=== PATIENT | female | born 1945 | race Caucasian/White ===

== ENCOUNTER 2022-04-29 08:50 | Day surgery (SDC) | payer OTHER, SELFPAY ==
[2022-04-25 14:07] LABS: Alanine Aminotransferase 21 U/L (10-49); Albumin, Serum 4.3 gm/dL (3.4-4.8); Albumin/Globulin Ratio 1.3 (1.2-2.2); Alkaline Phosphatase 83 U/L (46-116); Anion Gap 7 (7-16); Aspartate Amino Transferase 30 U/L (0-34); BUN/Creatinine Ratio 30 Ratio (12-20); Bilirubin,Total 0.4 mg/dL (0.3-1.2); Blood Urea Nitrogen 21 mg/dL (9-23); Calcium 9.6 mg/dL (8.3-10.6); Calcium (Corrected) 9.6 mg/dL (8.5-10.1); Carbon Dioxide 27.1 mMol/L (20.0-31.0); Chloride 107 mMol/L (98-107); Creatinine (Component) 0.7 mg/dL (0.6-1.3); Globulin 3.2 gm/dL (2.3-3.5); Glucose 85 mg/dL (74-106); Osmolality,Calculated 283 (275-295); Potassium 4.6 mMol/L (3.4-5.1); Sodium 141 mMol/L (136-145); Total Protein 7.5 gm/dL (5.7-8.2); eGFR > 60 See Note
[2022-04-25 14:11] LABS: COVID-19 (In-House Test) RNA Presumptive Negative (Negative)
[2022-04-29 09:18] VITALS: BP 137/77; PULSE 86; RESP 15; TEMP 36.4; O2SAT 97; BMI 22.6
[2022-04-29] MEDS: RINGERS LACTATED 1000 ML 1,000 ML 20 ML IV (10:59)
[2022-04-29 11:36] VITALS: BP 121/62; PULSE 72; RESP 21; TEMP 36.6; O2SAT 98
[2022-04-29 11:46] VITALS: BP 139/74; PULSE 69; RESP 19; O2SAT 97
--- NOTE | 2022-04-29 11:55 | SUR.PHASEII ---
1136: Pt received in [facility]. Pt sleepy. Easily aroused. Resp even, unlabored. VS stable. Pt passing flatus. Denies pain, discomfort.
[2022-04-29 11:56] VITALS: BP 132/70; PULSE 65; RESP 16; TEMP 36.6; O2SAT 97
--- NOTE | 2022-04-29 12:01 | SUR.PHASEII ---
1200: Pt more awake, alert. VS stable. Continues to pass flatus. Denies pain. Sitting up tolerating po fluids with no difficulty swallowing and no n/v.
--- NOTE | 2022-04-29 12:40 | SUR.PHASEII ---
1214: Pt fully awake, oriented x3. Pt assisted to restroom. Ambulation steady. Pt and grand daughter stated understanding of discharge instructions. Pt discharged from [facility] in stable condition.
== END 2022-04-29 12:14 | disposition home or self-care (01) ==
PROVIDERS: Anesthesiology; PCP Family Medicine; Referring Provider Internal Medicine Gastroenterology; Visit Provider Internal Medicine Gastroenterology
PROC: 0DBE8ZX Excision of Large Intestine, Via Natural or Artificial Opening Endoscopic, Diagnostic (ICD-10-PCS; CPT 45380; principal; 2022-04-29 11:45)
DX: K64.4 Residual hemorrhoidal skin tags (principal); K64.8 Other hemorrhoids; K57.30 Diverticulosis of large intestine without perforation or abscess without bleeding; Z20.822 Contact with and (suspected) exposure to COVID-19; Z01.810 Encounter for preprocedural cardiovascular examination; D12.5 Benign neoplasm of sigmoid colon; D12.0 Benign neoplasm of cecum
CPT/HCPCS: 45380; 36415; 80053; 87635; A4217; A4649; C9803; J7120; U0002

== ENCOUNTER 2024-07-21 16:08 | Emergency (ER) | payer OTHER, SELFPAY ==
[2024-07-21 16:09] VITALS: BMI 22.4
[2024-07-21 16:19] VITALS: BP 110/70; PULSE 86; RESP 20; TEMP 37.3; O2SAT 95
--- NOTE | 2024-07-21 16:28 | PD.EDRME ---
Rapid Medical Screening Exam E Arrival date/time: 07/21/24 16:08 78-year-old female with no known medical history presents to the emergency room with a chief complaint of weakness, fatigue, vomiting x 2 days. Patient was recently diagnosed with a UTI and is on antibiotics I have greeted and performed a focused initial assessment of this patient. A comprehensive ED assessment and evaluation of the patient, analysis of all test results, and completion of the medical decision making process will be conducted by additional ED providers. Chief Complaint: Urogenital-Female Time Seen by Provider: 07/21/24 16:14 Vital signs: Vital Signs Temperature 99.2 F 07/21/24 16:19 Pulse Rate 86 07/21/24 16:19 Respiratory Rate 20 07/21/24 16:19 Blood Pressure 110/70 07/21/24 16:19 Pulse Oximetry (%) 95 07/21/24 16:19 Oxygen Delivery Method Room Air 07/21/24 16:19 Vital signs reviewed by provider: Yes
[2024-07-21 16:53] LABS: Collection Type, Urine Clean Catch
[2024-07-21 16:54] LABS: Basophils % (Auto) 0 % (0-2.5); Eosinophils # (Auto) 0.1 Thou/mm3 (0.0-0.5); Eosinophils % (Auto) 1 % (0-10); Hematocrit 37.1 % (36.0-46.0); Hemoglobin 13.3 g/dL (12.0-16.0); Immature Granulocytes % (Auto) 0 % (0-0); Immature Granulocytes Auto 0.01 Thou/mm3 (0.00-0.00); Lymphocytes # (Auto) 1.6 Thou/mm3 (1.0-4.8); Lymphocytes % (Auto) 25 % (10-50); Mean Corpuscular HGB Conc 35.8 g/dl (31.0-37.0); Mean Corpuscular Hemoglobin 30.9 pg (25.0-35.0); Mean Corpuscular Volume 86 fL (80-100); Monocytes # (Auto) 0.5 Thou/mm3 (0.0-0.8); Monocytes % (Auto) 8 % (0-12); Neutrophils % (Auto) 65 % (37-80); Nucleated Red Blood Cell % 0 /100 WBC (0); Platelet Count 194 Thou/mm3 (140-440); RDW Standard Deviation 38.7 fL (36.4-46.3); Red Blood Count 4.31 Miln/mm3 (4.00-5.20); White Blood Count 6.2 Thou/mm3 (3.6-11.0)
[2024-07-21 17:09] LABS: Alanine Aminotransferase 18 U/L (10-49); Albumin, Serum 4.3 gm/dL (3.4-4.8); Albumin/Globulin Ratio 1.5 (1.2-2.2); Alkaline Phosphatase 65 U/L (46-116); Anion Gap 10 (7-16); Aspartate Amino Transferase 33 U/L (0-34); BUN/Creatinine Ratio 13 Ratio (12-20); Bilirubin,Total 0.5 mg/dL (0.3-1.2); Blood Urea Nitrogen 10 mg/dL (9-23); Calcium 8.8 mg/dL (8.3-10.6); Calcium (Corrected) 8.8 mg/dL (8.5-10.1); Carbon Dioxide 24.1 mMol/L (20.0-31.0); Chloride 106 mMol/L (98-107); Creatinine (Component) 0.8 mg/dL (0.6-1.3); Estimated Creatinine Clearance 52.2 mL/min (>60); Globulin 2.8 gm/dL (2.3-3.5); Glucose 114 mg/dL (74-106); Lipase 53 U/L (12-53); Osmolality,Calculated 279 (275-295); Potassium 4.2 mMol/L (3.4-5.1); Sodium 140 mMol/L (136-145); Total Protein 7.1 gm/dL (5.7-8.2); eGFR > 60 See Note
[2024-07-21 17:26] LABS: Bacteria,Urine Rare; Bilirubin,Urine 2+ (Negative); Blood,Urine Negative (Negative); Glucose, Urine Negative (Negative); Hyaline Casts,Urine < 1 /hpf (0-1); Ketones,Urine Negative (Negative); Leukocyte Esterase,Urine Negative (Negative); Nitrite,Urine Positive (Negative); Protein,Urine Trace (Neg - Trace); RBC,Urine 6 /hpf (0-3); Specific Gravity,Urine 1.017 (1.001-1.035); Squamous Epithelial Cell,Urine 3 /hpf (0-5); WBC,Urine 31 /hpf (0-5)
[2024-07-21 17:32] LABS: Clarity,Urine Hazy (Clear/Hazy); Color,Urine Red (Lt Yel-Yel)
--- NOTE | 2024-07-21 18:40 | EDNOTE_ITS ---
ED Female Urogenital RME/HPI General Chief complaint: Urogenital-Female Stated complaint: FEELS WEAK, VOMITING, DX WITH UTI ON ABX Time Seen by Provider: 07/21/24 16:14 Arrival date/time: 07/21/24 16:08 RME / HPI RME / HPI Narrative: 78-year-old female with no known medical history presents to the emergency room with a chief complaint of weakness, fatigue, vomiting x 2 days. Patient was recently diagnosed with a UTI and is on Macrobid. Patient denies any other complaints no medications taken prior to arrival. Related Data Previous Rx's ?Medication ?Instructions ?Recorded cefuroxime axetil 500 mg tablet 500 mg PO BID #14 tabs 07/21/24 ondansetron HCl 4 mg tablet 4 mg PO Q8H PRN nausea and 07/21/24 vomiting 5 days #20 tabs Allergies Allergy/AdvReac Type Severity Reaction Status Date / Time No Known Allergies Allergy Verified 07/21/24 16:10 Review of Systems Review of Systems Narrative Review of Systems: Review of system reviewed and within normal limits except mentioned in HPI ED Exam Narrative Physical exam: VITAL SIGNS: Reviewed. GENERAL APPEARANCE: Alert and interactive, follows commands, no acute distress, HEAD AND FACE: Non-traumatic. ENT: PERRL, pink conjunctivitis, eyelid no trauma, Mucous membrane moist. NECK: Supple, nontender, no nuchal rigidity. CHEST: No tenderness, no crepitus, no paradoxical movement, no retractions. LUNGS: Clear, well ventilated, symmetric, no rales, no wheezing, no ronchi, no stridor, good breath sounds bilaterally. HEART: Regular rate, regular rhythm, no murmur, no gallops. ABDOMEN: Soft, positive bowel sounds, nondistended, no guarding, nontender, no rebound, no masses, RECTAL: Deferred. GENITAL: Deferred. NEUROLOGICAL: Gross motor function intact sensory function intact, Appropriate for age. MUSCULOSKELETAL: low back nontender, full range of motion. EXTREMITIES: Nontender, full range of motion. SKIN: Color pink, dry, no rash, no lacerations, no abrasions, no contusions. LYMPHATICS: Deferred. Course Quality Measures none Orders Category Date Time Status CBC Stat Lab 07/21/24 16:34 Completed CMP [Comprehensive Metabolic Panel] Stat Lab 07/21/24 16:34 Completed Lipase Stat Lab 07/21/24 16:34 Completed UA [Urinalysis] Stat Lab 07/21/24 16:42 Completed Urine Culture Stat Lab 07/21/24 16:42 Received 1,000 mg IM w/Lido* 1% Med 07/21/24 18:39 Ordered cefTRIAXone [Rocephin] 1,000 mg Lidocaine 1% 20 ml [Xylocaine 1% 20 ML] 2.1 ml IM X1 Ondansetron Odt [Zofran Odt] Med 07/21/24 18:39 Once 4 mg PO X1 ONE Vital Signs Vital signs: Vital Signs Temperature 99.2 F 07/21/24 16:19 Pulse Rate 86 07/21/24 16:19 Respiratory Rate 20 07/21/24 16:19 Blood Pressure 110/70 07/21/24 16:19 Pulse Oximetry (%) 95 07/21/24 16:19 Oxygen Delivery Method Room Air 07/21/24 16:19 Urogenital - Female MDM Narrative MDM Narrative:: 78-year-old female with no known medical history presents to the emergency room with a chief complaint of weakness, fatigue, vomiting x 2 days. Patient was recently diagnosed with a UTI and is on Macrobid. Patient denies any other complaints no medications taken prior to arrival. Patient's laboratory workup all came back unremarkable. Except for UTI Was given ceftriaxone IM and Zofran with significant provide symptoms. I discontinued the Macrobid and changed to cefuroxime. She was tolerating p.o. fluids Patient data External records reviewed:: None Clinical information provided by:: patient Social determinants that could affect healthcare access:: none Patient has the following chronic illnesses:: None How is presenting disease/condition affected by chronic disease/condition?: no chronic disease Evaluation data The following diagnostics were reviewed and interpreted by me:: lab results Lab and/or radiology exams considered but not ordered:: None Interpretation Summary: See results MDM Medications / Prescriptions Medications or Prescriptions considered but not ordered:: None Medication administrations:: Medication Administration History Discontinued Medications Ceftriaxone Sodium 1,000 mg/ (Lidocaine HCl 2.1 ml) 0 mg IM X1 ONE Stop: 07/21/24 18:40 Ondansetron HCl (Ondansetron Odt 4 Mg Tabrap) 4 mg PO X1 ONE; Protocol Stop: 07/21/24 18:40 Ceftriaxone IM and Zofran Consultations Consultation(s) initiated? (list below): No Diagnosis Urogenital Female Differential Diagnosis: urinary tract infection and other (Generalized body weakness, dehydration) Most likely diagnosis given after review of the tests above:: UTI Admission Indicated Admission indicated?: not indicated Admission Request Was there a request for admission?: No Disposition Plan Disposition Plan: Discharge Discharge Attestation Discharge Attestation: The patient and all family members were given an opportunity to ask questions and understood the discharge instructions. Discharge instructions specifically effects, indications for sooner follow up or return to the emergency department, and the expected course of current diagnosis. Patient condition: Stable Discharge Plan Plan Patient Disposition: HOME (Self Care) Discharge Disposition comment: stable Prescriptions/Referrals Prescriptions/Med Rec: New cefuroxime axetil 500 mg tablet 500 mg PO BID Qty: 14 0RF ondansetron HCl 4 mg tablet 4 mg PO Q8H PRN (Reason: nausea and vomiting) 5 Days Qty: 20 0RF Referrals: Florian Mancilla MD [Primary Care Provider] - In 1 week Problem List Clinical Impression: Urinary tract infection Patient/Caregiver Discharge Instructions Discharge Activity: activity as tolerated Education Materials: Understanding Urinary Tract ... Additional Instructions: Thank you for the opportunity for serving you today. You are stable for discharged . You are advised to: Follow-up with your PCP in 1 to 2 days Return to ED for worsening of symptoms Increase oral fluids Take medication as prescribed Print Language: [place] Stand Alone Forms: [facility] Award Info., Patient Portal Info Letter HIMANSHU/CHERI Supervising Physician SHANTI Supervising Physician: MD Grace
[2024-07-21] MEDS: ONDANSETRON ODT 4 MG TABRAP PO (18:49)
[2024-07-21] MEDS: cefTRIAXone 1,000 MG, LIDOCAINE 1% 20 ML 2.1 ML IM (18:51)
== END 2024-07-21 19:02 | disposition home or self-care (01) ==
PROVIDERS: Nurse Practitioner Family; Emergency Provider Emergency Medicine; PCP Family Medicine
DX: N39.0 Urinary tract infection, site not specified (principal)
CPT/HCPCS: 36415; 80053; 81001; 83690; 85025; 87086; 96372; 99283; J0696; J3490; Q0162

== ENCOUNTER → 2024-08-02 | Outpatient (BNVA) | payer OTHER, SELFPAY | END | disposition home or self-care (01) | PROVIDERS: PCP Registered Nurse; Referring Provider Registered Nurse; Visit Provider Urology | DX: N81.10 Cystocele, unspecified (principal); R31.29 Other microscopic hematuria; F33.9 Major depressive disorder, recurrent, unspecified; M06.9 Rheumatoid arthritis, unspecified; G62.9 Polyneuropathy, unspecified | CPT/HCPCS: 51701; 81003; 87077; 87086; 87186; 99212; G0463 ==

== ENCOUNTER → 2024-12-05 | Outpatient (CLI) | payer OTHER, SELFPAY ==
[2024-12-05 10:30] LABS: Anion Gap 8 (7-16); BUN/Creatinine Ratio 15 Ratio (12-20); Blood Urea Nitrogen 12 mg/dL (9-23); Calcium 9.9 mg/dL (8.3-10.6); Carbon Dioxide 25.9 mMol/L (20.0-31.0); Chloride 105 mMol/L (98-107); Creatinine (Component) 0.8 mg/dL (0.6-1.3); Glucose 96 mg/dL (74-106); Osmolality,Calculated 277 (275-295); Potassium 4.2 mMol/L (3.4-5.1); Sodium 139 mMol/L (136-145); eGFR > 60 See Note
== END | disposition home or self-care (01) ==
LOC: COPL 08:53
PROVIDERS: PCP Registered Nurse; Referring Provider Registered Nurse; Visit Provider Registered Nurse
DX: R79.89 Other specified abnormal findings of blood chemistry (principal)
CPT/HCPCS: 36415; 80048

== ENCOUNTER → 2024-12-13 | Outpatient (CLI) | payer OTHER, SELFPAY ==
--- NOTE | 2024-12-13 09:30 | XR_ITS ---
Examination: MRI abdomen with intravenous contrast. MRI abdomen without intravenous contrast. Date and time of exam: December 13, 2024, 1005 hours INDICATIONS: Upper abdominal pain beginning 3 months ago, CT abdomen pelvis September 26, 2024 indeterminate 16 mm left adrenal nodule Technique: Multiple axial, sagittal and coronal sections of the abdomen obtained. Transverse images, TR 6020, TE 107. T1 weighted transverse images, TR 582, TE 9.5. T2-weighted sagittal images, TR 4000, TE 105. T2-weighted sagittal images, TR 4000, TE 5. Coronal images, TR 4210, TE 107. Axial and coronal images are obtained post 20 cc intravenous injection, gadolinium. Findings: No focal liver lesion or intrahepatic biliary tract dilatation Gallbladder sludge versus gallstones No common hepatic or common bile duct stones Spleen is not enlarged Nonenhancing 13 mm left adrenal nodule No abdominal lymphadenopathy No hydronephrosis Aorta normal size No ascites IMPRESSION: Findings most consistent with benign left adrenal adenoma Recommend 6-month follow-up abdominal sonography
== END | disposition home or self-care (01) ==
PROVIDERS: PCP Family Medicine; Referring Provider Registered Nurse; Visit Provider Registered Nurse
DX: D35.02 Benign neoplasm of left adrenal gland (principal)
CPT/HCPCS: 74183; A9577